=== PATIENT | male | born 1965 | race Caucasian/White ===

== ENCOUNTER 2020-02-12 10:39 | Outpatient (REF) | payer OTHER, SELFPAY | END 2020-02-12 10:40 | disposition home or self-care (01) | LOC: HO.LAB 10:39 | PROVIDERS: Visit Provider Internal Medicine | DX: Z20.828 Contact with and (suspected) exposure to other viral communicable diseases (principal) | CPT/HCPCS: C9803; U0003 ==

== ENCOUNTER 2020-04-10 08:47 | Outpatient (REF) | payer OTHER, SELFPAY | END 2020-04-10 08:48 | disposition home or self-care (01) | LOC: HO.LAB 08:47 | PROVIDERS: Visit Provider Internal Medicine | DX: Z20.822 Contact with and (suspected) exposure to COVID-19 (principal) | CPT/HCPCS: 36415; C9803; U0003 ==

== ENCOUNTER 2020-04-19 08:56 | Outpatient (REF) | payer OTHER, SELFPAY | END 2020-04-19 08:57 | disposition home or self-care (01) | LOC: HO.LAB 08:56 | PROVIDERS: Visit Provider Internal Medicine | DX: Z20.822 Contact with and (suspected) exposure to COVID-19 (principal) | CPT/HCPCS: 36415; C9803; U0003; U0005 ==

== ENCOUNTER 2024-04-12 08:21 | Outpatient (REF) | payer OTHER, SELFPAY ==
[2024-04-12 13:25] LABS: Appearance Urine Clear; Color Urine Yellow; Glucose Urine UA Negative (Negative); Leukocyte Esterase Urine Trace (Negative); Nitrite Urine Negative (Negative); PH 5.5 (5.0-9.0); UMIC TRIGGER UACC YES; Urine Blood Negative (Negative); Urine Ketones Negative (Negative); Urine Protein Negative (Neg-Trace)
[2024-04-12 13:29] LABS: Bacteria Urine None Seen (None Seen); Hyaline Casts Urine 0-2 /LPF (0-2); RBC Urine 0-2 /HPF (0-2); Squamous Epithelial Cell Urine 0-2 /HPF (0-2); WBC Urine 0-5 /HPF (0-5)
[2024-04-12 13:34] LABS: MANUAL DIFF FLAG NO
[2024-04-12 13:56] LABS: Basophils Percent Auto 0.5 % (0-2); Eosinophils Absolute Auto 0.2 X10*3/uL (0.0-0.4); Eosinophils Percent Auto 2.2 % (0-4); Hematocrit 51.5 % (42.0-52.0); Hemoglobin 16.6 g/dl (14.0-18.0); Imm Gran Abs Auto 0.04 X10*3/uL (0.00-0.03); Imm Gran Pct Auto 0.5 % (0.0-0.4); Lymphocytes Absolute Auto 1.4 X10*3/uL (1.2-4.9); Lymphocytes Percent Auto 17.3 % (20-40); Mean Corpuscular HGB Conc 32.2 g/dl (31.0-36.0); Mean Corpuscular Hemoglobin 30.4 pg (27.0-33.0); Mean Corpuscular Volume 94.3 fL (80.0-98.0); Mean Platelet Volume 9.5 fL (9.4-12.4); Monocytes Absolute Auto 0.8 X10*3/uL (0.1-1.2); Monocytes Percent Auto 9.6 % (2-11); Neutrophils Absolute Auto 5.6 x10*3/uL (2.0-8.3); Neutrophils Percent Auto 69.9 % (45-73); Platelet Count 277 X10*3/uL (160-400); Red Blood Count 5.46 X10*6/uL (4.60-5.80); Red Cell Distribution Width 13.4 % (11.0-16.0)
[2024-04-12 14:11] LABS: Alanine Aminotransferase 15 U/L (0-40); Albumin Level 4.5 g/dL (3.5-5.0); Alkaline Phosphatase 71 U/L (39-117); Anion Gap 12 (12-20); Aspartate Amino Transferase 24 U/L (5-37); Bilirubin Total 0.6 mg/dL (0.0-1.0); Blood Urea Nitrogen 10 mg/dL (9-16); Calcium 9.2 mg/dL (8.4-10.2); Carbon Dioxide 29 mmol/L (22-29); Chloride 100 mmol/L (96-108); Cholesterol 193 mg/dL (<200); Estimated Glomerular Filt Rate > 60; Glucose Fasting 87 mg/dL (60-99); HDL Cholesterol 76 mg/dL (>40); LDL Cholesterol Calculated 103 mg/dL (<100); Potassium 4.1 mmol/L (3.3-5.1); Sodium 137 mmol/L (135-145); Total Protein 7.8 g/dL (6.5-8.0); Triglycerides 70 mg/dL (<150)
[2024-04-12 14:21] LABS: PSA,Total (Free>4and<10) 1.29 ng/mL (0.00-4.00)
[2024-04-12 14:30] LABS: TSH reflex Free T4 0.98 uIU/mL (0.32-4.0); Vitamin D 25-OH Total 28.8 ng/mL (>30)
== END 2024-04-12 08:22 | disposition home or self-care (01) ==
LOC: HO.HMGCLDS 08:21
DX: Z00.00 Encounter for general adult medical examination without abnormal findings (principal)
CPT/HCPCS: 36415; 80053; 80061; 81001; 82306; 84153; 84443; 85025; 96127; 99202

== ENCOUNTER 2024-04-12 08:21 | Outpatient (AMB) | payer OTHER, SELFPAY ==
--- NOTE | 2024-04-12 08:29 | A.OFFPC_ITS ---
Vital Signs 04/12/24 08:34 Height 6 ft 0.25 in Weight 188 lb 8 oz BMI 25.4 BP 120/80 Blood Pressure Location Lt brachial Position Sitting Pulse 109 H Pulse Source Pulse Oximeter Pulse Oximetry (%) 96 Oxygen Delivery Method Room Air Intake Visit Reasons: new patient establish [employer] Required: No Accompanied by: Self / Same As Patient Allergies No Known Allergies [No Known Allergies*] Allergy (Verified 04/12/24 08:45) Medication List - Last Reconciled 04/12/24 by JEANA Moss No Known Home Meds Tobacco use date assessed: 04/12/24 Dental Screening Dental Screen Date: 04/12/24 Did you have a dental visit in the last 12 months?: No Did you have a dental problem in the last 6 months where you did not have access to dental care?: No Was dental information given to patient?: No HPI new patient establish HPI Details Previous PCP:about 10-12 years Last visit: long time ago Last PE: long time ago Specialist:no OBGYN:n/a Past medical history:n/a Medications:n/a Family HX:n/a The patient is a 58-year-old male presenting to [facility] Reports that he has not been to the doctor in a long time Patient reports that he does not have any significant past medical history Problem: scrotum: Reports that he has a bump on his scrotum that has been growing for like 3month Reports that it looks like a white bump. He has been scared to touch it so he is not sure if it is painful He denies any drainage. He reports that it looks almost like a pimple Skin lesions: Patient reports that a friend pointed out that he has some skin areas on his back when they were out on a boat Reports that they have been noticed about 2 years ago -lower back, dark brown area, mole appea ring 1.5cmx 1.2 cm irregular shape -Upper right back, below right shoulder blade dark, brown 0.8 cm x 0.7 cm irregular shape -right upper back, below the above lesio n dark, brown 0.6cm x0.6 cm irregular shape -mid-back cyst appearing area measured 2 cmx1.5cm, red/raise, looks like and post infection area It is semi firm to palpation, denies pain to area The patient is unsure if any of the areas have changed. Reports that his friend a verbalized that the area got slightly bigger since last year We will refer the patient to Dermatology for evaluation The patient also complains of lower back pain that he has been dealing with Reports that is really not that bad he uses ibuprofen with positive effect Reports that is mostly on the right side of lower back and sometimes the pain goes down into his right buttock area. Reports that a friend told him that this might be his sciatica Reports that he is not looking for any treatments at this time He has been looking up different exercises that could help and he is planning ongoing that [facility] and have the patient come back for a physical within 2 weeks [facility] Social History Housing: [place] Patient Tobacco Use Status: Current everyday Tobacco user Cigarette Packs Per Day: 1.5 Cigarettes Per Day: 30 e-Cigarette/Vaping Use: Never Used Second Hand Smoke Exposure: Yes service: No Current occupational status: employed Current occupational exposures/hazards: No Cognitive needs: No Hearing needs: No Vision needs: No Questionnaire PHQ-9 Over the last 2 weeks, how often have you been bothered by any of the following problems? 1. Little interest or pleasure in doing things: not at all 2. Feeling down, depressed, or hopeless: not at all 3. Trouble falling or staying asleep, or sleeping too much: not at all 4. Feeling tired or having little energy: not at all 5. Poor appetite or overeating: not at all 6. Feeling bad about yourself - or that you are a failure or have let yourself or your family down: not at all 7. Trouble concentrating on things, such as reading the newspaper or watching television: not at all 8. Moving or speaking so slowly that other people could have noticed. Or the opposite - being so fidgety or restless that you have been moving around a lot more than usual: not at all 9. Thoughts that you would be better off or of hurting yourself in some way: not at all Total score: 0 Depression Screening Interpretation: Negative Depression Screening Done: Yes 50968 - PHQ-9 Billing: Yes Source: Developed by Drs. Jaya Burnett, Sarahi Schulz, Jorje Reyes and colleagues, with an educational sarah from [employer]. Thrive Questionnaire Date Thrive assessed: 04/12/24 I am a: Patient What is your living situation today?: I have a steady place to live Within the past 12 months, did the food you bought not last and you didn't have the money to get more?: Never true Within the past 12 months, did you worry whether your food would run out before you got money to buy more?: Never true Do you have trouble paying for medicines?: I choose not to answer this question Do you have trouble getting transportation to medical appointments?: No Do you have trouble paying your heating and electricity bill?: No Do you have trouble taking care of your child, family member or friend?: No Do you have trouble with day-to-day activities such as bathing, preparing meals, shopping, managing finances, etc.?: No Are you currently unemployed and looking for a job?: No Are you interested in more education?: No Please select the resources that you would like help with: None Currently or been in a relationship where the following occur: No concerns reported THRIVE Score: 0 AUDIT C Alcohol Use Questionnaire (AUDIT-C) 1. How often do you have a drink containing alcohol?: 4 or more times a week 2. How many drinks containing alcohol do you have on a typical day when you are drinking?: 3 or 4 3. How often do you have six or more drinks on one occasion?: Monthly Total Score: 7 Score Reviewed/Action Taken: Yes SOULEYMANE-7 AMB Questionnaire SOULEYMANE-7 Date SOULEYMANE - 7 assessed: 04/12/24 Feeling nervous, anxious, or on edge: 0 = Not at all Not being able to stop or control worryin = Not at all Worrying too much about different things: 0 = Not at all Trouble relaxin = Not at all Being so restless that it is hard to sit still: 0 = Not at all Becoming easily annoyed or irritable: 0 = Not at all Feeling afraid as if something awful might happen: 0 = Not at all Total SOULEYMANE-7 score (0-4 normal; 5-9 mild; 10-14 moderate; 15-21 severe): 0 Source: Developed by Drs. Jaya Burnett, Sarahi Schulz, Jorje Reyes and colleagues, with an educational sarah from [employer]. SOULEYMANE-7 Assessment Billing SOULEYMANE-7 Assessment Tool: SOULEYMANE-7 Assessment 79805 Review of Systems Const Details: Denies chills, Denies fatigue, Denies fever(s), Denies headache(s) and Denies weakness HEENT Denies change in vision, Denies dizziness, Denies headache(s), Denies hearing loss, Denies nasal congestion, Denies sinus pain, Denies sinus pressure and Denies sore throat Card Denies chest pain, Denies lightheadedness, Denies dyspnea and Denies other (palpitations) Resp Denies cough, Denies dyspnea and Denies wheezing GI Denies abdominal pain, Denies melena, Denies hematochezia, Denies change in bowel habits, Denies dyspepsia and Denies nausea Denies hematuria and Denies dysuria Musc Denies abnormal gait, Denies myalgias, Denies arthralgias, Denies numbness and Denies tingling Other: Intermittent lower back pain, mostly on the right side, radiates to right buttock that times Skin/Breast Denies rash, Denies unusual bruising and Denies wounds Other: Same as HPI Neuro Denies abnormal gait, Denies dizziness, Denies headache(s), Denies memory loss, Denies numbness, Denies Sensory deficit (Neuro), Denies tingling and Denies weakness Psych Denies anxiety, Denies depression and Denies memory loss Endo Denies cold intolerance, Denies fatigue, Denies heat intolerance, Denies polydipsia and Denies polyuria Gabriel/Lymph Denies easy bleeding and Denies easy bruising Aller/Immun Denies wheezing Physical exam (Primary Care) Vital Signs: Last Vital Signs Pulse 109 H 04/12/24 08:34 BP 120/80 04/12/24 08:34 Pulse Ox 96 04/12/24 08:34 Oxygen Delivery Method Room Air 04/12/24 08:34 BMI result Body Mass Index 25.4 Tobacco/Smoking Status: Tobacco use Status Tobacco use date assessed 04/12/24 04/12/24 08:31 Patient Tobacco Use Status Current everyday Tobacco 04/12/24 08:40 e-Cigarette/Vaping Use Never Used 04/12/24 08:40 PHQ-9: PHQ-9 Score PHQ-9: Total score 0 04/12/24 19:48 Depression Screening Interpretation: Negative Thrive Assessment: Date of Thrive Assessment Date Thrive assessed 04/12/24 04/12/24 08:31 Currently or been in a relationship where the following occur: No concerns reported Const Other: General: no acute distress, well developed, alert and awake Nutritional Appearance: well nourished Orientation/consciousness: patient oriented x3 HENMN Head: Yes normocephalic and Yes atraumatic Ears: hearing grossly normal bilaterally and TM's normal bilaterally General nose exam: Normal external nose present and Normal nares present Mouth: Normal oral and palatal mucosa present and moist mucous membranes Eyes Pupils: Equal, round and reactive pupils present and Pupil accommodation reflex normal EOM: EOMs intact bilaterally Neck Neck: Yes normal visual inspection, Yes no lymphadenopathy and Yes trachea midline Thyroid: Thyroid normal Lymphatic: no lymphadenopathy noted Resp Effort & Inspection: normal respiratory effort Auscultation: clear to auscultation bilaterally Cardio Rate: regular rate Rhythm: regular rhythm Heart sounds: S1 normal heart sound present, S2 normal heart sound present, no gallops, no murmurs and no rubs GI Palpation (GI): No Abdominal aortic bruit present, Soft to palpation, nontender, No hepatosplenomegaly present and No Rebound tenderness present Auscultation: normal bowel sounds General: Yes no CVA tenderness Back/Spine/Pelvis Back: no CVA tenderness Cervical Spine: cervical ROM normal and No Cervical spine tenderness Thoracic/Lumbar Spine: thoraco-lumbar ROM normal, No pain with thoraco-lumbar ROM, No thoracic spinal tenderness and No lumbar spinal tenderness Skin General: warm and dry. Normal skin color. Normal skin turgor Other: Same as HPI Nails: normal Neuro General: patient oriented x3, gait normal Cranial nerves: Yes Equal, round and reactive pupils present Cognition (Neuro): normal cognition Gait exam (Neuro): Normal gait present Extrem General: Yes normal to inspection, No edema and No calf tenderness Psych Appearance: grossly normal Affect: normal affect Attitude: cooperative Thought process: Normal thought process present Coding Level of Care Code New Pt Level 3 (25114) Diagnoses Skin lesions L98.9 Back abscess L02.212 Cyst of scrotum L72.9 Right low back pain, unspecified chronicity, unspecified whether sciatica present M54.50 Back pain laterality: right Chronicity: unspecified Sciatica presence: unspecified whether sciatica present Additional Codes SOULEYMANE-7 Assessment Billing - SOULEYMANE-7 Assessment Tool: SOULEYMANE-7 Assessment 32272 ([id number]) PHQ-9 - 74493 - PHQ-9 Billing: Yes ([id number]) Time Spent (min) 29 Assessment & Plan Assessment & Plan (1) Skin lesions: Code(s): L98.9 - Disorder of the skin and subcutaneous tissue, unspecified Category: Medical Plan: multiple mole appearing areas on his back, dark, brown in color. irregular sh ape areas will referral to dermatology (2) Back abscess: Code(s): L02.212 - Cutaneous abscess of back [any part, except buttock] Category: Medical Plan: Will referral to dermatology (3) Cyst of scrotum: Code(s): L72.9 - Follicular cyst of the skin and subcutaneous tissue, unspecified Category: Medical Plan: Will referral to dermatology (4) Lower back pain: Code(s): M54.50 - Low back pain, unspecified Category: Medical Qualifiers: Back pain laterality: right Chronicity: unspecified Sciatica presence: unspecified whether sciatica present Qualified Code(s): M54.50 - Low back pain, unspecified Plan: continue exercises/stretches continue ibuprofen otc Plan To return in 2 weeks for his annual physical examination Orders: Orders Vitamin D 25-OH Total 04/12/24 Z00. - Encounter for general adult medical examination without abnormal findings TSH reflex Free T4 04/12/24 Z00. - Encounter for general adult medical examination without abnormal findings Glucose Fasting 04/12/24 Z00.00 - Encounter for general adult medical examination without abnormal findings Complete Blood Count Auto Diff 04/12/24 Z00. - Encounter for general adult medical examination without abnormal findings Comprehensive [place]. Panel Fast 04/12/24 Z00. - Encounter for general adult medical examination without abnormal findings Lipid Panel 04/12/24 Z00.00 - Encounter for general adult medical examination without abnormal findings UA CC w/rflx Micro + Cult 04/12/24 Z00. - Encounter for general adult medical examination without abnormal findings PSA,Total (Free>4and<10) 04/12/24 Z00.00 - Encounter for general adult medical examination without abnormal findings Referrals Dermatology Referral L02.212 - Cutaneous abscess of back [any part, except buttock], L72.9 - Follicular cyst of the skin and subcutaneous tissue, unspecified, L98.9 - Disorder of the skin and subcutaneous tissue, unspecified
[2024-04-12 08:34] VITALS: BP 120/80; PULSE 109; O2SAT 96; BMI 25.4
== END 2024-04-12 09:20 | disposition home or self-care (01) ==
DX: L98.9 Disorder of the skin and subcutaneous tissue, unspecified (principal); L02.212 Cutaneous abscess of back [any part, except buttock and flank]; L72.9 Follicular cyst of the skin and subcutaneous tissue, unspecified; M54.50 Low back pain, unspecified

== ENCOUNTER 2024-04-27 11:11 | Outpatient (AMB) | payer OTHER, SELFPAY ==
[2024-04-27 11:28] VITALS: BP 136/82; PULSE 85; O2SAT 94; BMI 25.4
--- NOTE | 2024-04-27 11:28 | MHC.PC.OV ---
Vital Signs 04/27/24 11:28 Height 6 ft 0.25 in Weight 188 lb 6 oz BMI 25.4 BP 136/82 Blood Pressure Location Lt brachial Position Sitting Pulse 85 Pulse Source Pulse Oximeter Pulse Oximetry (%) 94 Oxygen Delivery Method Room Air Intake Visit Reasons: Annual Exam Plate Former Required: No Accompanied by: Self / Same As Patient Allergies No Known Allergies [No Known Allergies*] Allergy (Verified 04/12/24 08:45) Medication List - Last Reconciled 04/27/24 by JEANA Moss No Known Home Meds Tobacco use date assessed: 04/27/24 Dental Screening Dental Screen Date: 04/27/24 Did you have a dental visit in the last 12 months?: No Did you have a dental problem in the last 6 months where you did not have access to dental care?: No Was dental information given to patient?: No HPI Annual Exam HPI Details Dentist: couple years-encouraged to make an appointment Eye: in a while-will make an appt Snellen: Right: Left: Corrected vision: glasses STI screening: n/a Colonoscopy: due, opted for the cologuard PHQ-9: Flu: declines-family strongly against shots and pills COVID: berkley Tdap: 2019 Diet: regular Exercise:active at work, construction and maintenance inspector The patient is 58y/o male presenting for an annual physical He denies any concerns today reports that he was connected with dermatology and has an appt for his back skin issues and scrotum cyst area He reports that his lower back pain has subsided since he started doing the stretching exercises The patient reports smoking for 40 years about 1.5 pack/day Will refer the patient for lung cancer screening The patient denies sob, chest pain, heart palpitation, dizziness or headaches He denies abdominal pain or change in bowel habits He denies any urinary symptoms Skin lesions: Patient reports that a friend pointed out that he has some skin areas on his back when they were out on a boat Reports that they have been noticed about 2 years ago -lower back, dark brown area, mole appearing 1.5cmx 1.2 cm irregular shape -Upper right back, below right shoulder blade dark, brown 0.8 cm x 0.7 cm irregular shape -right upper back, below the above lesion dark, brown 0.6cm x0.6 cm irregular shape -mid-back cyst appearing area measured 2cmx1.5cm, red/raise, looks like and post infection areaIt is semi firm to palpation, denies pain to area The patient is unsure if any of the areas have changed. Reports that his friend a verbalized that the area got slightly bigger since last year [facility] Social History Housing: House Patient Tobacco Use Status: Current everyday Tobacco user Cigarette Packs Per Day: 1.5 Cigarettes Per Day: 30 e-Cigarette/Vaping Use: Never Used Second Hand Smoke Exposure: Yes service: No Current occupational status: employed Current occupational exposures/hazards: No Cognitive needs: No Hearing needs: No Vision needs: No Questionnaire PHQ-9 Over the last 2 weeks, how often have you been bothered by any of the following problems? 1. Little interest or pleasure in doing things: not at all 2. Feeling down, depressed, or hopeless: not at all 3. Trouble falling or staying asleep, or sleeping too much: not at all 4. Feeling tired or having little energy: not at all 5. Poor appetite or overeating: not at all 6. Feeling bad about yourself - or that you are a failure or have let yourself or your family down: not at all 7. Trouble concentrating on things, such as reading the newspaper or watching television: not at all 8. Moving or speaking so slowly that other people could have noticed. Or the opposite - being so fidgety or restless that you have been moving around a lot more than usual: not at all 9. Thoughts that you would be better off or of hurting yourself in some way: not at all Total score: 0 Depression Screening Interpretation: Negative Depression Screening Done: Yes 02430 - PHQ-9 Billing: Yes Source: Developed by Drs. Jaya Burnett, Sarahi Schulz, Jorje Reyes and colleagues, with an educational sarah from [employer]. Thrive Questionnaire Date Thrive assessed: 04/27/24 I am a: Patient What is your living situation today?: I have a steady place to live Within the past 12 months, did the food you bought not last and you didn't have the money to get more?: Never true Within the past 12 months, did you worry whether your food would run out before you got money to buy more?: Never true Do you have trouble paying for medicines?: I choose not to answer this question Do you have trouble getting transportation to medical appointments?: No Do you have trouble paying your heating and electricity bill?: No Do you have trouble taking care of your child, family member or friend?: No Do you have trouble with day-to-day activities such as bathing, preparing meals, shopping, managing finances, etc.?: No Are you currently unemployed and looking for a job?: No Are you interested in more education?: No Please select the resources that you would like help with: None Currently or been in a relationship where the following occur: No concerns reported THRIVE Score: 0 AUDIT C Alcohol Use Questionnaire (AUDIT-C) 1. How often do you have a drink containing alcohol?: 4 or more times a week 2. How many drinks containing alcohol do you have on a typical day when you are drinking?: 3 or 4 3. How often do you have six or more drinks on one occasion?: Monthly Total Score: 7 Score Reviewed/Action Taken: Yes SOULEYMANE-7 AMB Questionnaire SOULEYMANE-7 Date SOULEYMANE - 7 assessed: 04/27/24 Feeling nervous, anxious, or on edge: 0 = Not at all Not being able to stop or control worryin = Not at all Worrying too much about different things: 0 = Not at all Trouble relaxin = Not at all Being so restless that it is hard to sit still: 0 = Not at all Becoming easily annoyed or irritable: 0 = Not at all Feeling afraid as if something awful might happen: 0 = Not at all Total SOULEYMANE-7 score (0-4 normal; 5-9 mild; 10-14 moderate; 15-21 severe): 0 Source: Developed by Drs. Jaya Burnett, Sarahi Schulz, Jorje Reyes and colleagues, with an educational sarah from [employer]. SOULEYMANE-7 Assessment Billing SOULEYMANE-7 Assessment Tool: SOULEYMANE-7 Assessment 34008 Review of Systems Const Details: Denies chills, Denies fatigue, Denies fever(s), Denies headache(s) and Denies weakness HEENT Denies change in vision, Denies dizziness, Denies headache(s), Denies hearing loss, Denies nasal congestion, Denies sinus pain, Denies sinus pressure and Denies sore throat Card Denies chest pain, Denies lightheadedness, Denies dyspnea and Denies other (palpitations) Resp Denies cough, Denies dyspnea and Denies wheezing GI Denies abdominal pain, Denies melena, Denies hematochezia, Denies change in bowel habits, Denies dyspepsia and Denies nausea Denies hematuria and Denies dysuria Musc Denies abnormal gait, Denies myalgias, Denies arthralgias, Denies numbness and Denies tingling Skin/Breast See HPI Neuro Denies abnormal gait, Denies dizziness, Denies headache(s), Denies memory loss, Denies numbness, Denies Sensory deficit (Neuro), Denies tingling and Denies weakness Psych Denies anxiety, Denies depression and Denies memory loss Endo Denies cold intolerance, Denies fatigue, Denies heat intolerance, Denies polydipsia and Denies polyuria Gabriel/Lymph Denies easy bleeding and Denies easy bruising Aller/Immun Denies wheezing Physical exam (Primary Care) Vital Signs: Last Vital Signs Pulse 85 04/27/24 11:28 BP 136/82 04/27/24 11:28 Pulse Ox 94 04/27/24 11:28 Oxygen Delivery Method Room Air 04/27/24 11:28 BMI result Body Mass Index 25.4 Tobacco/Smoking Status: Tobacco use Status Tobacco use date assessed 04/27/24 04/27/24 11:30 Patient Tobacco Use Status Current everyday Tobacco 04/27/24 11:28 e-Cigarette/Vaping Use Never Used 04/27/24 11:28 PHQ-9: PHQ-9 Score PHQ-9: Total score 0 04/27/24 19:13 Depression Screening Interpretation: Negative Thrive Assessment: Date of Thrive Assessment Date Thrive assessed 04/27/24 04/27/24 11:30 Currently or been in a relationship where the following occur: No concerns reported Const Other: General: no acute distress, well developed, alert and awake Nutritional Appearance: well nourished Orientation/consciousness: patient oriented x3 HENMT Head: Yes normocephalic and Yes atraumatic Ears: hearing grossly normal bilaterally and TM's normal bilaterally General nose exam: Normal external nose present and Normal nares present Mouth: Normal oral and palatal mucosa present and moist mucous membranes Teeth and gingiva: dentition normal Throat: Yes oropharynx normal Eyes Pupils: Equal, round and reactive pupils present and Pupil accommodation reflex normal EOM: EOMs intact bilaterally Neck Neck: Yes normal visual inspection, Yes no lymphadenopathy and Yes trachea midline Thyroid: Thyroid normal Carotids: no bruits Lymphatic: no lymphadenopathy noted Chest Chest palpation & inspection: normal inspection of the chest Resp Effort & Inspection: normal respiratory effort Auscultation: clear to auscultation bilaterally Cardio Rate: regular rate Rhythm: regular rhythm Heart sounds: S1 normal heart sound present, S2 normal heart sound present, no gallops, no murmurs and no rubs Bruits: no abdominal aortic bruits and no carotid bruits GI Palpation (GI): No Abdominal aortic bruit present, Soft to palpation, nontender, No hepatosplenomegaly present and No Rebound tenderness present Auscultation: normal bowel sounds General: Yes no CVA tenderness Back/Spine/Pelvis Back: no CVA tenderness Cervical Spine: cervical ROM normal and No Cervical spine tenderness Thoracic/Lumbar Spine: thoraco-lumbar ROM normal, No pain with thoraco-lumbar ROM, No thoracic spinal tenderness and No lumbar spinal tenderness Skin General: warm and dry. Normal skin color. Normal skin turgor See HPI Nails: normal Neuro General: patient oriented x3, gait normal and CN's II-XI intact bilaterally Cranial nerves: Yes Equal, round and reactive pupils present Cognition (Neuro): normal cognition Gait exam (Neuro): Normal gait present Motor exam (neuro): 5/5 motor strength present throughout Sensory Exam: No Sensory deficit (Neuro) Deep tendon reflexes (DTR's): Right patellar reflex intensity grade: 2+ and Left patellar reflex intensity grade: 2+ Extrem General: Yes normal to inspection, No edema and No calf tenderness Psych Appearance: grossly normal Affect: normal affect Attitude: cooperative Thought process: Normal thought process present Results Reviewed Results Reviewed: Laboratory Tests 04/12/24 09:47 WBC 8.0 RBC 5.46 Hgb 16.6 Hct 51.5 MCV 94.3 MCH 30.4 Plt Count 277 Sodium 137 Potassium 4.1 Chloride 100 Carbon Dioxide 29 BUN 10 Creatinine 0.83 Estimated GFR > 60 Fasting Glucose 87 AST 24 ALT 15 Alkaline Phosphatase 71 Total Protein 7.8 Triglycerides 70 Cholesterol 193 LDL Cholesterol, Calc 103 H HDL Cholesterol 76 Total PSA 1.29 25-OH Vitamin D Total 28.8 L TSH 0.98 Urine Color Yellow Urine Appearance Clear Urine pH 5.5 Ur Specific Nelson 1.020 Urine Protein Negative Urine Glucose (UA) Negative Urine Ketones Negative Urine Blood Negative Urine Nitrite Negative Ur Leukocyte Esterase Trace H Urine RBC 0-2 Urine WBC 0-5 Ur Squamous Epith Cells 0-2 Urine Bacteria None Seen Hyaline Casts 0-2 Coding Level of Care Code Est Pt Prev Care 40-64y(42130) Diagnoses Annual physical exam Z00.00 Encounter for screening for lung cancer Z12.2 Skin lesions L98.9 Back abscess L02.212 Cyst of scrotum L72.9 Right low back pain, unspecified chronicity, unspecified whether sciatica present M54.50 Back pain laterality: right Chronicity: unspecified Sciatica presence: unspecified whether sciatica present Vitamin D deficiency E55.9 Elevated low density lipoprotein (LDL) cholesterol level E78.00 Additional Codes SOULEYMANE-7 Assessment Billing - SOULEYMANE-7 Assessment Tool: SOULEYMANE-7 Assessment 16127 ([id number]) PHQ-9 - 49862 - PHQ-9 Billing: Yes ([id number]) Time Spent (min) 34 Assessment & Plan Assessment & Plan (1) Annual physical exam: Code(s): Z00.00 - Encounter for general adult medical examination without abnormal findings Category: Medical Plan: The patient has not see the dentist for a while; he was encouraged to make an appt. The patient is due for eye exam; he wear glasses but have not change his prescription for awhile; the patient reports that he will make an appt. The patient is due for a colonoscopy but he opted to do the cologuard test. Recent labs reviewed with the patient. The patient was referred to thoracic for lung cancer screening (2) Encounter for screening for lung cancer: Code(s): Z12.2 - Encounter for screening for malignant neoplasm of respiratory organs Category: Medical Plan: Referral placed to thoracic surgery (3) Skin lesions: Code(s): L98.9 - Disorder of the skin and subcutaneous tissue, unspecified Category: Medical Plan: multiple mole appearing areas on his back, dark, brown in color. irregular shape areas The patient was referred to dermatology-reports that he has an appt scheduled (4) Back abscess: Code(s): L02.212 - Cutaneous abscess of back [any part, except buttock] Category: Medical Plan: upcoming appt with dermatology (5) Cyst of scrotum: Code(s): L72.9 - Follicular cyst of the skin and subcutaneous tissue, unspecified Category: Medical Plan: same as above (6) Lower back pain: Code(s): M54.50 - Low back pain, unspecified Category: Medical Qualifiers: Back pain laterality: right Chronicity: unspecified Sciatica presence: unspecified whether sciatica present Qualified Code(s): M54.50 - Low back pain, unspecified Plan: continue exercises/stretches continue ibuprofen otc (7) Vitamin D deficiency: Code(s): E55.9 - Vitamin D deficiency, unspecified Category: Medical Plan: Continue cholecalciferol 25 mcg daily (8) Elevated low density lipoprotein (LDL) cholesterol level: Code(s): E78.00 - Pure hypercholesterolemia, unspecified Category: Medical Plan: LDL slightly elevated at 103 Reinforced low-cholesterol diet and activity as tolerated Orders: Referrals Cologuard Test Z12.11 - Encounter for screening for malignant neoplasm of colon, Z12.12 - Encounter for screening for malignant neoplasm of rectum Thoracic/General Surgery Referral Z12.2 - Encounter for screening for malignant neoplasm of respiratory organs Medications: New cholecalciferol (vitamin D3) 25 mcg PO DAILY 30 caps 3RF
== END 2024-04-27 12:27 | disposition home or self-care (01) ==
DX: Z00.00 Encounter for general adult medical examination without abnormal findings (principal); Z12.2 Encounter for screening for malignant neoplasm of respiratory organs; L98.9 Disorder of the skin and subcutaneous tissue, unspecified; L02.212 Cutaneous abscess of back [any part, except buttock and flank]; L72.9 Follicular cyst of the skin and subcutaneous tissue, unspecified; M54.50 Low back pain, unspecified; E55.9 Vitamin D deficiency, unspecified; E78.00 Pure hypercholesterolemia, unspecified

== ENCOUNTER → 2024-04-27 11:11 | Outpatient (BNVA) | payer OTHER, SELFPAY | DX: Z00.00 Encounter for general adult medical examination without abnormal findings (principal); L98.9 Disorder of the skin and subcutaneous tissue, unspecified; L02.212 Cutaneous abscess of back [any part, except buttock and flank]; L72.9 Follicular cyst of the skin and subcutaneous tissue, unspecified; M54.50 Low back pain, unspecified; E55.9 Vitamin D deficiency, unspecified; E78.00 Pure hypercholesterolemia, unspecified | CPT/HCPCS: 96127; 99396 ==

== ENCOUNTER 2024-06-16 09:10 | Outpatient (AMB) | payer OTHER, SELFPAY ==
--- NOTE | 2024-06-16 07:50 | A.OFFVIS_ITS ---
Intake Visit Reasons: Current Smoker Allergies No Known Allergies [No Known Allergies*] Allergy (Verified 04/12/24 08:45) HPI HPI Current Smoker: Details: Initial visit for this 58yo smoker with a 50+PYH. Patient started smoking at age 14 for 44 years at 1-1.5ppd. Currently working to cut down. . Denies marijuana use. Denies second hand smoke exposure. 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 . Denies known family history of lung cancer. Denies personal history of cancers. Denies chest CT in last year. . Denies recent travel outside the [place]. Denies recent respiratory illness or recent hospitalization for respiratory issues. Denies testing positive for COVID. Admits receiving COVID Vaccine. 1 [employer]J. . Denies fever, chills, new/worsening cough, hemoptysis, hoarseness or dysphagia. Denies significant chest pain, significant dyspnea or unintentional weight loss. Patient Lung Cancer Screening Questionnaire reviewed with patient by provider. . Shared Decision Making Completed. Patient meets criteria. Discussed in detail with patient, the risk vs benefit of LDCT screening. Patient consents to proceed with scan. Discussed smoking cessation. [facility] Medical History (Updated 06/16/24 @ 09:19 by Sola Espinal PA-C) Vitamin D deficiency Nicotine dependence, cigarettes, uncomplicated Social History (Updated 06/16/24 @ 09:20 by Sola Espinal PA-C) Housing: House Alcohol intake: current Patient Tobacco Use Status: Current everyday Tobacco user Cigarette Packs Per Day: 1.5 Cigarettes Per Day: 30 Years Smoked: (onset 14yo, 1-1.5ppd x 44yrs, 50+PYH) e-Cigarette/Vaping Use: Never Used Second Hand Smoke Exposure: Yes service: No Current occupational status: employed Current occupational exposures/hazards: No Cognitive needs: No Hearing needs: No Vision needs: No Assessment & Plan Assessment & Plan (1) Nicotine dependence, cigarettes, uncomplicated: Comment: (onset 14yo, 1-1.5ppd x 44yrs, 50+PYH) Code(s): F17.210 - Nicotine dependence, cigarettes, uncomplicated Category: Medical Plan: - SDM visit completed today in office. - Patient meets criteria for LDCT for lung cancer screening purposes and is asymptomatic. - Smoking cessation counseling offered. Patients can always call [phone]. - Will arrange for a LDCT scan of the chest for screening purposes at [facility]. - Risks, benefits, and alternatives were discussed in detail and the patient agrees to proceed. - Risks discussed include but are not limited to: radiation exposure, anxiety during testing and while awaiting results, false negatives, false positives and possibility of additional intervention such as further imaging or surgical procedures for benign disease. - Benefits are obviously detection of lung cancer at an early stage which can lead to improved outcomes. - Discussed the importance of screening program compliance with adherence to yearly LDCT scan as scheduled - or sooner interval scans for personalized screening regimen. - Discussed follow up plan. Our office will send a letter discussing results and if needed set up phone call and office visit based on CT findings. - Patient educated on results categorization and the management decisions for suspicious findings potentially found on the screening LDCT scan. Any patient with a Lung RADS score of 3 or 4 will be reviewed by a multidisciplinary team at [facility] to form a plan of action in regards to scan findings. - If further work up is warranted for a suspicious lung finding this will be followed by the Lung Cancer Screening program in conjunction with the Thoracic Surgery Department at [facility]. - A copy of the office note and LDCT will be sent to the patient's PCP - as well as documentation on any associated further plans of care. - Incidental findings on LDCT are the PCP's responsibility. These findings are indicated with an S finding on the LDCT Assessment. A note discussing the findings will be sent to the PCP who is then responsible for further management. - All questions answered.? Coding Level of Care Code Lung Cancer Screening G0296 Diagnoses Nicotine dependence, cigarettes, uncomplicated F17.210
== END 2024-06-16 09:50 | disposition home or self-care (01) ==
LOC: HO.HPS 09:11
PROVIDERS: Visit Provider Physician Assistant Medical
DX: F17.210 Nicotine dependence, cigarettes, uncomplicated (principal)
CPT/HCPCS: G0296

== ENCOUNTER 2024-06-16 09:32 | Outpatient (REF) | payer OTHER, SELFPAY ==
--- NOTE | ~2024-06-16 | CT_ITS ---
CLINICAL HISTORY: F17.210 - Nicotine dependence, cigarettes, uncomplicated CT lung cancer screening (LDCT) Comparison: None available Technique: Axial CT images of the chest using low-dose technique. Referring provider counseled the patient on shared decision-making for LDCT screening. Additional counseling was provided on smoking cessation. Effective radiation dose total: DLP 48.1 mGycm, CTDIvol 1.3 mGy. Findings: Lun mm solid pulmonary nodule laterally in the left lower lobe, image 113 of series 6 (category 2) in this baseline examination. Moderate bilateral emphysematous changes with mild scarring. Coronary artery calcifications: Mild Limited upper abdomen: Unremarkable Other: Mild vertebral height losses appear old/chronic and accentuated by multifocal Schmorl's nodes. Segmentation anomaly of the sternum. Degenerative changes include imaged shoulders and imaged spine, with severe osteoarthritis of the left glenohumeral joint. Impression: Category 2: Benign appearance or behavior, continue annual screening This document has been electronically signed by: Familia Cannon MD on 06/17/2024 01:17:33
== END 2024-06-16 09:33 | disposition home or self-care (01) ==
LOC: HO.CT 09:32
PROVIDERS: Visit Provider Physician Assistant Medical
DX: Z12.2 Encounter for screening for malignant neoplasm of respiratory organs (principal); F17.210 Nicotine dependence, cigarettes, uncomplicated
CPT/HCPCS: 71271; G0296

== ENCOUNTER → 2024-06-16 09:33 | Outpatient (BNV) | payer OTHER, SELFPAY | PROVIDERS: Visit Provider Radiology Neuroradiology | DX: Z12.2 Encounter for screening for malignant neoplasm of respiratory organs (principal); F17.210 Nicotine dependence, cigarettes, uncomplicated | CPT/HCPCS: 71271 ==